=== PATIENT | female | born 1945 | race Caucasian/White ===

== ENCOUNTER → 2017-07-15 | Outpatient (CLI) | payer OTHER ==
--- NOTE | 2017-07-15 12:18 | MRI ---
HISTORY: Ocular migraine and headaches. Study: Noncontrast MRI examination of the brain. Comparison: None available Technique: Multiplanar multi-sequence MRI of the brain was obtained utilizing standard departmental p rotocol. Sagittal and axial T1 weighted images were obtained. Axial T2 and flair weighted images we re performed as well. Axial diffusion weighted and ADC trace mapping was performed. Findings: There is mild cerebral sulcal and cisternal prominence which is age-appropriate. There are several, a t least 5-10, T2 intense/FLAIR intense, white matter foci seen within the height mid convexity bilate rally which can be seen with migraine disease or microvascular disease from hypertension/diabetes. Th is would require appropriate clinical context but would be atypical for a primary demyelinating condi tion. No other intracranial abnormality is seen. The midline structures appear unremarkable. The tong luation of the brain parenchyma demonstrates no abnormal signal characteristics to suggest intraparen chymal mass or hemorrhage. No extra-axial fluid collections are observed. The ventricular system ap pears symmetric and nondilated. The CP angle is normal in its appearance without brainstem mass or evidence for acoustic neuroma. The flow voids on both T1 and T2 weighted imaging appear unremarkable . Evaluation of the diffusion weighted imaging does not demonstrate abnormal signal characteristics to suggest acute ischemic change. Nonspecific fluid and mucoperiosteal thickening is seen within mas toid air cells bilaterally. The remaining extracranial structures are unremarkable. IMPRESSION: Mild cerebral sulcal and cisternal prominence which is age-appropriate. Also seen are several, at least 5-10, T2 intense/FLAIR intense, white matter foci seen within the hig h and mid convexity of the brain bilaterally which can be seen with migraine disease or microvascular disease from HTN/diabetes. This would require appropriate clinical context but would be atypical for a primary demyelinating condition. No other intracranial abnormality is seen. No MRI evidence for ac bruno CVA, intracranial bleed, or mass lesion. Nonspecific fluid/mucoperiosteal thickening is seen within mastoid air cells bilaterally. Please codie elate for any evidence for mastoid disease/middle ear infections in this patient. Reported By:
== END ==
LOC: RAD 10:51 → EDSEX 10:51
PROVIDERS: ATTEND Psychiatry & Neurology Neurology
DX: G43.109 Migraine with aura, not intractable, without status migrainosus (principal)
CPT/HCPCS: 70551